=== PATIENT | female | born 1930 | race Caucasian/White ===

== ENCOUNTER 2017-02-11 11:00 | Emergency (ER) | payer MEDICARE ==
[2017-02-11 12:12] LABS: #Basophils 0.1 thou/uL (0.0-0.2); #Eosinphils 0.5 thou/uL (0.0-0.7); #Lymphocytes 2.1 thou/uL (1.20-3.40); #Monocytes 0.8 thou/uL (0.11-0.59); #Neutrophils 4.3 thou/uL (1.40-6.50); %Basophils 1.6 % (0.0-1.0); %Eosinophils 6.2 % (0.0-10.0); %Lymphocytes 27.2 % (21.0-51.0); %Monocytes 10.1 % (0.0-10.0); Hematocrit 33.8 % (36.0-47.0); Mean Platelet Volume 8.8 fL (7.4-10.4); White Blood Cell (WBC) Count 7.9 thou/uL (4.8-10.8)
[2017-02-11 12:21] LABS: Lactic Acid - Sepsis 1.2 mmol/L (0.5-2.2)
[2017-02-11 12:28] LABS: ALT (SGPT) 19 U/L (8-55); AST (SGOT) 20 U/L (5-34); Alkaline Phosphatase 50 U/L (40-150); Anion Gap 13 mmol/L (10-20); BUN (Urea Nitrogen) 17 mg/dL (9.8-20.1); Bilirubin, Total 0.4 mg/dL (0.2-1.2); CK (CPK) 66 U/L (29-168); Calc. Creatinine Clearance 0 mL/min (70-130); Calcium 10.1 mg/dL (7.8-10.44); Carbon Dioxide 27 mmol/L (23-31); Chloride 100 mmol/L (98-107); Estimated GFR-MDRD 49; Globulin 2.9 g/dL (2.4-3.5); Protein, Total 6.9 g/dL (6.0-8.3)
[2017-02-11 12:29] LABS: Troponin I Less than 0.010 ng/mL (< 0.028)
--- NOTE | 2017-02-11 12:41 | RAD ---
2 VIEWS CHEST: Date: 02/11/17 COMPARISON: None. HISTORY: Cough and fever. FINDINGS: Two views of the chest show normal sized cardiomediastinal silhouette with atherosclerotic calcifica tions in the aorta. There is no evidence of consolidation, mass, or pleural effusion. Scoliotic curv ature of the spine is seen. There are remote left rib fractures. IMPRESSION: No evidence of acute cardiopulmonary disease. POS: [facility]
== END 2017-02-11 13:17 | disposition home or self-care (01) ==
LOC: SCSER 11:00
DX: R05 Cough (principal); E11.9 Type 2 diabetes mellitus without complications; I10 Essential (primary) hypertension; E78.5 Hyperlipidemia, unspecified; F32.9 Major depressive disorder, single episode, unspecified; Z87.891 Personal history of nicotine dependence
CPT/HCPCS: 36415; 71020; 80053; 82550; 82553; 83605; 83880; 84484; 85025; 87040; 93005